=== PATIENT | female | born 2000 | race Caucasian/White ===

== ENCOUNTER 2018-05-10 15:01 | Outpatient (CLI) | payer BC ==
--- NOTE | 2018-05-11 00:15 | Ultrasound Report ---
FINAL REPORT EXAM: Pelvic ultrasound. HISTORY: STOMACH CRAMPS COMPARISON: None available. TECHNIQUE: Several real-time grayscale and color Doppler images were obtained. Transabdominal exam. FINDINGS: No technologist worksheet available. The uterus measures 5.2 x 3.2 by 3.0 centimeters. Endometrial stripe measures 2-3 millimeters. Majori ty of the uterus is obscured. Urinary bladder not well distended. No large uterine lesion demonstrate d. Ovaries are not visualized. No adnexal masses are demonstrated. IMPRESSION: Limited exam. No gross uterine lesions. Ovaries are not visualized. No gross adnexal masses are demon strated. Transvaginal pelvic ultrasound may be of benefit for further evaluation if clinically indica luis.
== END 2018-05-10 15:02 | disposition home or self-care (01) ==
LOC: US 15:01
DX: R10.9 Unspecified abdominal pain (principal); Z88.0 Allergy status to penicillin; Z91.018 Allergy to other foods
CPT/HCPCS: 76856

== ENCOUNTER 2021-09-18 08:32 | Emergency (ER) | payer BC ==
[2021-09-18 10:22] LABS: Bacteria,Urine 1+ /HPF (Negative); Bilirubin,Urine NEG (Negative); Blood,Urine SM (Negative); Color,Urine Straw (Yellow); Protein,Urine <15 mg/dL mg/dL (Negative); Urobilinogen,Urine < 2.0 mg/dL (<2.0)
[2021-09-18 10:23] LABS: HCG Qualitative,Urine Negative (Negative)
[2021-09-18] MEDS ORDERED: KETOROLAC 30 MG/1 ML INJ IM ONE (10:42)
--- NOTE | 2021-09-18 10:56 | Emergency Department Report ---
ED Back Pain/Injury HPI - General Chief Complaint: Back Pain/Injury Stated Complaint: PAIN LEFT TAIL BONE/ABD PAIN Time Seen by Provider: 09/18/21 10:35 Source: patient Limitations: No Limitations - History of Present Illness Initial Comments: Patient is a 20-year-old female with history of left clubfoot and who presents for low back pain x3 days. Patient was seen by chiropractor 2 days ago states pain is now worsening. Pain described at 5/10 aching sharp radiating to left lower extremity. There is no numbness no tingling no paralysis. There is no dysuria frequency or urgency. Last menstrual cycle 1 week ago. There is been no fall injury or trauma. Is been no loss or decrease in bowel or bladder function. MD Complaint: back pain - Related Data Home Medications Medication Instructions Recorded Confirmed Last Taken Cefdinir 1 cap PO BID 06/25/15 09/18/21 06/24/15 Previous Rx's Medication Instructions Recorded Last Taken Type Menthol/Camphor [[place] 1 applicatio TP QID PRN #1 tube 09/18/21 Unknown Rx Ointment] Naproxen 500 mg PO BID PRN #30 tab 09/18/21 Unknown Rx Allergies Allergy/AdvReac Type Severity Reaction Status Date / Time gluten Allergy Nausea Verified 09/18/21 10:52 Penicillins Allergy Dizziness Verified 09/18/21 10:52 ED Review of Systems ROS: Stated complaint: PAIN LEFT TAIL BONE/ABD PAIN Other details as noted in HPI Constitutional: denies: chills, fever Eyes: denies: eye pain, eye discharge, vision change ENT: denies: ear pain, throat pain Respiratory: denies: cough, shortness of breath, wheezing Cardiovascular: denies: chest pain, palpitations Endocrine: no symptoms reported Gastrointestinal: denies: abdominal pain, nausea, diarrhea Genitourinary: denies: urgency, dysuria, discharge Musculoskeletal: back pain, myalgia Skin: denies: rash, lesions Neurological: denies: headache, weakness, paresthesias Psychiatric: denies: anxiety, depression Hematological/Lymphatic: denies: easy bleeding, easy bruising ED Past Medical Hx - Past Medical History Previous Medical History?: Yes Hx Headaches / Migraines: Yes Additional medical history: Back pain and uses a Chiropractor - Surgical History Past Surgical History?: Yes Additional Surgical History: T&A / ELIJAH FOOT - Social History Smoking Status: Never Smoker Substance Use Type: None - Medications Home Medications: Home Medications Medication Instructions Recorded Confirmed Last Taken Type Cefdinir 1 cap PO BID 06/25/15 09/18/21 06/24/15 History Menthol/Camphor [[place] 1 applicatio TP QID PRN #1 tube 09/18/21 Unknown Rx Ointment] Naproxen 500 mg PO BID PRN #30 tab 09/18/21 Unknown Rx ED Physical Exam - General Limitations: No Limitations General appearance: alert, in no apparent distress - Head Head exam: Present: atraumatic, normocephalic - Eye Eye exam: Present: normal appearance, EOMI Pupils: Present: normal accommodation - ENT ENT exam: Present: mucous membranes moist - Neck Neck exam: Present: normal inspection, full ROM. Absent: tenderness (No posterior vertebral point tenderness range of motion intact unrestricted all quadrants), meningismus - Respiratory Respiratory exam: Present: normal lung sounds bilaterally. Absent: respiratory distress, wheezes - Cardiovascular Cardiovascular Exam: Present: regular rate, normal rhythm, normal heart sounds. Absent: systolic murmur, diastolic murmur, rubs, gallop - GI/Abdominal GI/Abdominal exam: Present: soft, normal bowel sounds. Absent: distended, tenderness - Rectal Rectal exam: Present: deferred - Extremities Exam Extremities exam: Present: normal inspection, full ROM, normal capillary refill. Absent: tenderness, pedal edema - Back Exam Back exam: Present: paraspinal tenderness. Absent: CVA tenderness (R), CVA tenderness (L), vertebral tenderness - Expanded Back Exam Expanded Back exam: Absent: saddle anesthesia Back exam: Positive Straight Leg Raise: Left, Negative Straight Leg Raising: Right - Neurological Exam Neurological exam: Present: alert, oriented X3, CN II-XII intact, normal gait, reflexes normal. Absent: motor sensory deficit - Expanded Neurological Exam Expanded Patient oriented to: Present: person, place, time Speech: Present: fluid speech Motor strength exam: RUE: 5, LUE: 5, RLE: 5, LLE: 5 DTR: knee (R): 1+, knee (L): 1+ Best Eye Response ([place]): (4) open spontaneously Best Motor Response (Rudi): (6) obeys commands Best Verbal Response (Rudi): (5) oriented Rudi Total: 15 - Psychiatric Psychiatric exam: Present: normal affect, normal mood - Skin Skin exam: Present: warm, dry, intact, normal color. Absent: rash ED Course Vital Signs 09/18/21 09/18/21 09/18/21 09:24 10:48 10:51 Temperature 98.4 F 98.2 F 98.2 F Pulse Rate 93 H 75 73 Respiratory 18 16 20 Rate Blood Pressure 112/80 119/69 Blood Pressure 111/69 [Right] O2 Sat by Pulse 100 99 99 Oximetry ED Medical Decision Making - Lab Data Labs 09/18/21 Unknown Urine Color Straw Urine Turbidity Clear Urine pH 6.0 Ur Specific [place] 1.009 Urine Protein <15 mg/dl Urine Glucose (UA) Neg Urine Ketones 20 Urine Blood Sm Urine Nitrite Neg Urine Bilirubin Neg Urine Urobilinogen < 2.0 Ur Leukocyte Esterase Neg Urine WBC (Auto) 2.0 Urine RBC (Auto) 0.0 U Epithel Cells (Auto) 3.0 Urine Bacteria (Auto) 1+ Urine HCG, Qual Negative - Radiology Data Radiology results: report reviewed, image reviewed XR spine lumbosacral 2-3V INDICATION / CLINICAL INFORMATION: low back pain. COMPARISON: None available. FINDINGS: BONES/JOINT(S): No acute fracture. No significant malalignment. PARASPINAL SOFT TISSUES:No significant abnormality. ADDITIONAL FINDINGS: None. IMPRESSION: 1. No acute findings. Signer Name: Jordana Contreras MD Signed: 09/18/2021 11:19 AM Workstation Name: [id number] Transcribed By: JS Dictated By: JORDANA CONTRERAS MD Electronically Authenticated By: JORDANA CONTRERAS MD Signed Date/Time: 09/18/211118 DD/ 18 TD/TT: - Medical Decision Making Normal x-rays normal no fractures no malalignment no soft tissue abnormality. UA normal pain is improved plan DC to home, NSAIDs as needed pain follow-up with orthopedics in 2 to 3 days. Patient verbalized agreement understanding of discharge plan. Patient DC'd home in stable condition at this time. Critical care attestation.: If time is entered above; I have spent that time in minutes in the direct care of this critically ill patient, excluding procedure time. ED Disposition Clinical Impression: Lumbar spine strain Qualifiers: Encounter type: initial encounter Qualified Code(s): S39.012A - Strain of muscle, fascia and tendon of lower back, initial encounter Disposition: HOME / SELF CARE / HOMELESS Is pt being admited?: No Does the pt Need Aspirin: No Condition: Stable Instructions: Low Back Sprain or Strain Rehab-[facility] Additional Instructions: Take medications as prescribed. Back exercises as directed. Follow-up with orthopedic surgery in 2 to 3 days. Return to emergency department should symptoms worsen. Prescriptions: Naproxen 500 mg PO BID PRN #30 tab PRN Reason: pain Menthol/Camphor [[place] Ointment] 1 applicatio TP QID PRN #1 tube PRN Reason: pain Referrals: BLAIRE HUNT MD [Staff Physician] - 3-5 Days Forms: Work/School Release Form(ED) Time of Disposition: 11:33
--- NOTE | 2021-09-18 11:24 | XRay Report ---
XR spine lumbosacral 2-3V INDICATION / CLINICAL INFORMATION: low back pain. COMPARISON: None available. FINDINGS: BONES/JOINT(S): No acute fracture. No significant malalignment. PARASPINAL SOFT TISSUES:No significant abnormality. ADDITIONAL FINDINGS: None. IMPRESSION: 1. No acute findings. Signer Name: Blu Gray MD Signed: 09/18/2021 11:19 AM Workstation Name: [id number]
[2021-09-18] MEDS ORDERED: ACETAMINOPHEN W/CODEINE 300-30 MG TAB PO ONE (11:40)
[2021-09-18 11:58] VITALS: BP 116/69
== END 2021-09-18 11:55 | disposition home or self-care (01) ==
LOC: ED 08:32
DX: S39.012A Strain of muscle, fascia and tendon of lower back, initial encounter (principal); G43.909 Migraine, unspecified, not intractable, without status migrainosus; Z88.0 Allergy status to penicillin; Z91.09 Other allergy status, other than to drugs and biological substances; X58.XXXA Exposure to other specified factors, initial encounter; Y93.89 Activity, other specified; Y92.89 Other specified places as the place of occurrence of the external cause; Y99.8 Other external cause status
CPT/HCPCS: 72100; 81001; 81025; 96372; 99284; J1885